=== PATIENT | male | born 1955 | race Two or more races ===

== ENCOUNTER 2020-04-21 12:11 | Emergency (ER) | payer OTHER ==
[~2020-04-21] VITALS: Ht 175.3 cm; Wt 90.7 kg
[2020-04-21] MEDS ORDERED: SYNTHROID150 MCG (12:34)
[2020-04-21] MEDS ORDERED: VISTARIL25 MG PO (16:00)
== END 2020-04-21 16:07 | disposition home or self-care (01) ==
LOC: ER 12:11
DX: F06.4 Anxiety disorder due to known physiological condition (principal); Z03.818 Encounter for observation for suspected exposure to other biological agents ruled out

== ENCOUNTER 2023-01-28 14:51 | Emergency (ER) | payer OTHER ==
[~2023-01-28] VITALS: Ht 177.8 cm; Wt 82.1 kg
[~2023-01-28 14:51] MED LIST: SYNTHROID150 MCG; VISTARIL25 MG PO
[2023-01-28] MEDS ORDERED: ZOLOFT50 MG PO (15:35)
[2023-01-28] MEDS ORDERED: SINEMET 25-1001 EACH PO (15:35)
[2023-01-28 17:11] LABS: HEMATOCRIT 36.8 % (39.0-48.0); HEMOGLOBIN 12.8 g/dL (13-16.00); MEAN CELL VOLUME 89.4 fL (80.0-100.00); MEAN CORPUSCULAR HEMOGLOBIN 31.2 pg (27.00-32.0); MEAN CORPUSCULAR HGB CONC 34.8 g/dl (32.0-36.0); PLATELET COUNT 178 K/uL (150-450); RED BLOOD COUNT 4.11 M/uL (4.00-6.00); RED CELL DISTRIBUTION WIDTH 13.8 % (11.5-14.5)
[2023-01-28 17:38] LABS: CALCIUM 9.1 mg/dL (8.5-10.1); CREATININE SERUM 0.68 mg/dL (0.70-1.30); GFR 116.67; POTASSIUM 4.31 mEq/L (3.5-5.1)
[2023-01-28] MEDS ORDERED: PEPCID AC20 MG PO (18:16)
[2023-01-28] MEDS ORDERED: ONDANSETRON HCL4 MG PO (18:16)
== END 2023-01-28 18:37 | disposition home or self-care (01) ==
LOC: ER 14:51
PROVIDERS: Nurse Practitioner Family
DX: R53.1 Weakness (principal); F41.9 Anxiety disorder, unspecified
CPT/HCPCS: 36415; 96365; 99283; J7030